=== PATIENT | male | born 1950 | race Two or more races ===

== ENCOUNTER 2016-12-10 11:08 | Outpatient (CLI) ==
--- NOTE | 2016-12-10 12:05 | DI ---
EXAM: Three views of the thoracic spine. History: Thoracic back pain. Findings: No acute fracture or subluxation of the thoracic spine. Mild multilevel degenerative dis c space narrowing. Atherosclerotic vascular calcifications of the aortic knob. Mild focal rightward curvature of the thoracic spine. Impression: No acute osseous abnormality of the thoracic spine. Mild degenerative disc disease.
--- NOTE | 2016-12-10 12:05 | DI ---
EXAM: Radiographs, left shoulder HISTORY: Left shoulder pain. COMPARISON: None available. TECHNIQUE: Three views. FINDINGS: Bone mineralization is normal. There is no fracture or dislocation. The joint spaces ar e maintained. Mild marginal osteophyte formation seen at the acromioclavicular and glenohumeral opal nts. No focal soft tissue abnormality is seen. IMPRESSION: Mild osteoarthritis.
--- NOTE | 2016-12-10 12:07 | DI ---
EXAM: PA and lateral views of the chest HISTORY: Cough. COMPARISON: None FINDINGS: The cardiomediastinal silhouette is normal. There is no pneumothorax or pleural effusion . There is a irregular mass in the left upper lobe with questionable spiculated borders measuring 3 .9 x 6.0 cm. No additional nodule or consolidation is identified. This is poorly visualized on lat eral view. There is mild hyperinflation of the lungs. The osseous structures demonstrate no acute a bnormality. IMPRESSION: 1. Irregular appearing mass in the left upper lobe with questionable spiculated borders of concern f or neoplasm. CT chest with contrast is recommended to further evaluate. 2. Mild lung hyperinflation may suggest a component of chronic obstructive pulmonary disease. Unexpected findings: Left upper lobe mass.
== END 2016-12-10 11:09 | disposition home or self-care (01) ==
LOC: RAD 11:08
PROVIDERS: ATTEND Physician Assistant
DX: M54.9 Dorsalgia, unspecified (principal); R05 Cough; M25.512 Pain in left shoulder

== ENCOUNTER 2016-12-11 12:58 | Outpatient (CLI) ==
--- NOTE | 2016-12-11 13:56 | CT ---
EXAM: CT Chest with and without contrast. HISTORY: Left upper chest pain. Abnormal chest radiograph. COMPARISON: 12/10/2016. TECHNIQUE: Multiple axial images of the chest were obtained prior to and following intravenous admi nistration of 75 mL of Omnipaque 350, low osmolar. Images were reformatted in the sagittal and gonzalo nal planes. FINDINGS: A 5 x 2.8 x 3.7 cm spiculated cavitary mass in the left upper lobe invades the adjacent s haft wall and of the adjacent anterior third and fourth ribs. The lungs otherwise clear. Severe em physematous changes noted. No pleural effusion or pneumothorax identified. There are nonenlarged left hilar and mediastinal lymph nodes. Right hilar lymph nodes measure up to 1 cm short axis on axial image 34 of the postcontrast series. Heart size is normal. There is no p ericardial effusion. Atherosclerotic calcifications are present. Limited images of the upper abdomen demonstrate a 1 x 0.7 cm low density lesion in the posterior inf erior right hepatic lobe on postcontrast axial image 78. Cholelithiasis noted. 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 No other localized osseous abnormalities identified. IMPRESSION: 1. Unexpected finding: Large spiculated cavitary left upper lobe mass invading the left chest wall and adjacent third and fourth ribs, representing bronchogenic carcinoma until proven otherwise. 2. Right hilar lymphadenopathy. Nonenlarged left hilar and mediastinal lymph nodes. 3. Indeterminate low-density right hepatic lesion which requires correlation with abdominal MRI.
== END 2016-12-11 12:59 | disposition home or self-care (01) ==
LOC: RAD 12:58
PROVIDERS: ATTEND Physician Assistant
DX: R91.8 Other nonspecific abnormal finding of lung field (principal)